=== PATIENT | male | born 1955 | race Caucasian/White ===

== ENCOUNTER → 2016-12-29 | Outpatient (CLI) | payer BC ==
--- NOTE | 2016-12-29 09:51 | DIAGNOSTIC IMAGING REPORT ---
C-SPINE ROUTINE 4 OR 5 VIEWS HISTORY: 60 years-old Male INCREASED HEADACHES chronic headache with posterior neck pain COMPARISON: None available TECHNIQUE: 5 views of the cervical spine FINDINGS: The seventh vertebral segment is partially obscured by soft tissue. No acute cervical spine fracture or subluxation identified. There is mild straightening of the normal cervical lordosis. Moderate intervertebral disc space narrowing with spondylitic change, uncovertebral spurring and facet arthropathy noted at C4-C5 and C5-C6 resulting in at least moderate foraminal narrowing on the right at these levels. Imaged lung apices are clear. IMPRESSION: 1. No acute cervical spine fracture or subluxation. 2. Moderate intervertebral disc space narrowing with endplate spurring and facet arthropathy at C4-C5 and C5-C6 results in at least moderate foraminal narrowing on the right at these levels. The above report was generated using voice recognition software. It may contain grammatical, syntax or spelling errors. Electronically signed by: Ben Quinonez M.D. 12/29/2016 9:50 AM Dictated Date/Time: 12/29/2016 9:48 AM
== END | disposition home or self-care (01) ==
LOC: C.RAD1850 09:33
PROVIDERS: ATTEND Nurse Practitioner Family
DX: M54.2 Cervicalgia (principal); R51 Headache